=== PATIENT | male | born 1975 | race African-American/Black ===

== ENCOUNTER 2018-06-07 01:35 | Emergency (ER) | payer MEDICAID ==
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
[2018-06-07 02:15] VITALS: BP 118/74
== END 2018-06-07 02:14 | disposition home or self-care (01) ==
DX: S93.402A Sprain of unspecified ligament of left ankle, initial encounter (principal); F17.200 Nicotine dependence, unspecified, uncomplicated; Y04.8XXA Assault by other bodily force, initial encounter; Y99.8 Other external cause status; Y93.89 Activity, other specified
CPT/HCPCS: L4350

== ENCOUNTER 2018-12-17 07:04 | Inpatient (IN) | payer MEDICAID, OTHER ==
--- NOTE | 2018-12-17 07:07 | EDPHY ---
H & P Source: Patient, EMS - Medical/Surgical History Hx Asthma: No Hx Chronic Respiratory Disease: No Hx Diabetes: No Hx Cardiac Disease: No Hx Renal Disease: No Hx Cirrhosis: No Hx Alcoholism: No Hx HIV/AIDS: No Hx Splenectomy or Spleen Trauma: No Other PMH: l ankle fx. substance abuse - Social History Smoking Status: Current every day smoker Time Seen by Provider: 12/17/18 07:07 HPI/ROS: HPI CHIEF COMPLAINT: Running outside naked, drug intoxication possible low blood sugar. HISTORY OF PRESENT ILLNESS: 43-year-old male, presents emergency room by EMS after the make contact he was running outside naked and reports possible methamphetamine use. He appeared acutely agitated running outside check blood sugar got a low blood sugar in the 40s. They brought him to the emergency room where I have shivering. Reported that he did meth. He has an abrasion to the right anterior tibia. Otherwise atraumatic. Patient is a very poor historian appears to be under the of drugs, shaking and sleepy. Past Medical History: Unknown medical history Past Surgical History: Unknown surgical history Social History: Methamphetamine today. Family History: Noncontributory ROS REVIEW OF SYSTEMS: 10 Systems were reviewed and negative with the exception of the elements mentioned in the history of present illness. Exam Constitutional shaking, sleepy, triage nursing summary reviewed, vital signs reviewed, awake/alert. Eyes normal conjunctivae and sclera, EOMI, PERRLA. HENT normal inspection, atraumatic, moist mucus membranes, no epistaxis, neck supple/ no meningismus, no raccoon eyes. Respiratory clear to auscultation bilaterally, normal breath sounds, no respiratory distress, no wheezing. Cardiovascular rate normal, regular rhythm, no murmur, no edema, distal pulses normal. Gastrointestinal soft, non-tender, no rebound, no guarding, normal bowel sounds, no distension, no pulsatile mass. Genitourinary no CVA tenderness. Musculoskeletal no midline vertebral tenderness, full range of motion, no calf swelling, no tenderness of extremities, no meningismus, good pulses, neurovascularly intact. Skin laceration to the right anterior tibia. 3 cm vertically oriented midline tibial ridge. Neurologic somewhat agitated, shaking, Psychiatric normal mood/affect. Heme/Lymph/Immune no lymphadenopathy. Differential Diagnosis: Includes but is not limited to in a particular order polysubstance abuse, methamphetamine intoxication, hypothermia, dehydration, hypoglycemia, rhabdomyolysis Medical Decision Making: Plan for this patient IV establishment with IV fluid bolus, check blood sugar, check core temperature, basic electrolytes, EKG, chest x-ray, drug screen, alcohol level, IV fluids, Reji Hugger. Re-evaluation: X-ray of the right tib-fib: Negative for acute fracture. Along the anterior spine of the right tib-fib distal 1/3 there is a 3 cm vertically oriented laceration present. Patient's laceration was repaired by myself. He had a vertically oriented 3 cm right tib-fib laceration. Wound was copiously irrigated and cleaned. Explored there is no foreign body or debris. Procedure: Laceration repair. Laceration Repair Procedure: Verbal Consent was obtained, Under sterile conditions, The patient had lidocaine with epinephrine used approximately 6ccs to local anesthetize the right tib-fib 3CM Laceration. The wound was copiously irrigated with sterile fluid, the wound was explored for foreign bodies there were none visualized, the wound was explored with a sterile glove to the base. There are no deep structures involved, including no arterial injury. THREE 5.O PROLENE interrupted Sutures were placed in this patient's laceration. He had good close approximation of the wound edges. He Tolerated this well. 0814: Patient is here high on methamphetamine and acutely agitated and tachycardic. Multiple attempts were made for IV access. Very difficult stick. I did place an IV in his right neck under ultrasound guidance. This unfortunately infiltrated. Will re-attempt. Patient's initial blood glucose was noted to be low in the 50s. He received a amp of D50. EKG interpretation by me on record in [facility] system. Impression time of EKG 7:43 a.m., sinus tach 110 without any signs of acute ischemia. Chest x-ray negative for acute cardiopulmonary disease. Image interpreted by myself. 8:30 a.m. patient re-evaluated patient still very agitated. 10 mg hide IM Zyprexa ordered. 0900AM: Patient much improved after IM 10mg Zyprexa. Labs pending. (Adilson Escobar) Constitutional: Initial Vital Signs O2 Sat (%) 95 12/17/18 07:10 O2 Delivery Mode Room Air O2 (L/minute) 2 Allergies/Adverse Reactions: No Known Allergies Allergy (Unverified 12/17/18 09:43) Home Medications: Medication Instructions Recorded Doxycycline Hyclate 100 mg PO BID #14 tab 06/14/18 Medical Decision Making - Diagnostics Imaging Results: Imaging Impressions Chest X-Ray 12/17/18 07:10 Impression: No acute abnormality. Tibia/Fibula X-Ray 12/17/18 07:36 Impression: Negative. Critical Care Time: I assumed care of the patient at 9:00 a.m. Patient is noted to have rhabdomyolysis and mild hypoglycemia Patient had an IV established. He received 3 L of normal saline. The patient is noted to have mild renal insufficiency. 12:00 p.m.: Patient continues to remain sedated from medications received earlier today. Patient has been started on D5 half-normal saline at 150 ml/hr. Repeat CPK is 21,000. Plan will be for admission to the hospital for further treatment of his rhabdomyolysis and renal insufficiency. Consultation is made with the hospitalist service at 12:30 p.m.. (Ajay Lozada) - Data Points Laboratory Results: Laboratory Results 12/17/18 07:33 12/17/18 08:55 12/17/18 12/17/18 12/17/18 12:14 09:27 08:55 WBC RBC Hgb POC Hgb Hct POC Hct MCV MCH MCHC RDW Plt Count MPV Neut % (Auto) Lymph % (Auto) [place] % (Auto) Eos % (Auto) Baso % (Auto) Nucleat RBC Rel Count Absolute Neuts (auto) Absolute Lymphs (auto) Absolute Monos (auto) Absolute Eos (auto) Absolute Basos (auto) Absolute Nucleated RBC Immature Gran % Immature Gran # PT INR APTT POC Sodium Sodium 143 mEq/L mEq/L (135-145) POC Potassium Potassium 5.0 mEq/L mEq/L (3.5-5.2) POC Chloride Chloride 109 mEq/L mEq/L (97-110) Carbon Dioxide 20 mEq/l L mEq/l (22-31) Anion Gap 14 mEq/L mEq/L (6-14) POC BUN BUN 35 mg/dL H mg/dL (7-23) Creatinine 1.7 mg/dL H mg/dL (0.7-1.3) POC Creatinine Estimated GFR 44 Glucose 63 mg/dL L mg/dL (70-100) POC Glucose 80 mg/dL mg/dL 63 mg/dL L mg/dL (70-100) (70-100) Calcium 9.2 mg/dL mg/dL (8.5-10.4) Magnesium Total Bilirubin Conjugated Bilirubin Unconjugated Bilirubin AST ALT Alkaline Phosphatase Creatine Kinase Pending CK-MB (CK-2) Fraction CK-MB (CK-2) % Creatine Kinase Interp POC Troponin I Total Protein Albumin Lipase Ethyl Alcohol 12/17/18 12/17/18 12/17/18 08:08 07:33 07:33 WBC RBC Hgb POC Hgb 14.3 gm/dL gm/dL (13.7-17.5) Hct POC Hct 42 % % (40-51) MCV MCH MCHC RDW Plt Count MPV Neut % (Auto) Lymph % (Auto) [place] % (Auto) Eos % (Auto) Baso % (Auto) Nucleat RBC Rel Count Absolute Neuts (auto) Absolute Lymphs (auto) Absolute Monos (auto) Absolute Eos (auto) Absolute Basos (auto) Absolute Nucleated RBC Immature Gran % Immature Gran # PT INR APTT POC Sodium 143 mEq/L mEq/L (135-145) Sodium POC Potassium 4.7 mEq/L mEq/L (3.3-5.0) Potassium POC Chloride 107 mEq/L mEq/L (97-110) Chloride Carbon Dioxide Anion Gap POC BUN 33 mg/dL H mg/dL (7-23) BUN Creatinine POC Creatinine 1.8 mg/dL H mg/dL (0.7-1.3) Estimated GFR Glucose POC Glucose 72 mg/dL mg/dL 66 mg/dL L mg/dL (70-100) (70-100) Calcium Magnesium Total Bilirubin Conjugated Bilirubin Unconjugated Bilirubin AST ALT Alkaline Phosphatase Creatine Kinase CK-MB (CK-2) Fraction CK-MB (CK-2) % Creatine Kinase Interp POC Troponin I 0.07 ng/mL ng/mL (0.00-0.08) Total Protein Albumin Lipase Ethyl Alcohol 12/17/18 12/17/18 12/17/18 07:33 07:33 07:33 WBC 19.62 10^3/uL H 10^3/uL (3.80-9.50) RBC 4.62 10^6/uL 10^6/uL (4.40-6.38) Hgb 13.6 g/dL L g/dL (13.7-17.5) POC Hgb Hct 41.6 % % (40.0-51.0) POC Hct MCV 90.0 fL fL (81.5-99.8) MCH 29.4 pg pg (27.9-34.1) MCHC 32.7 g/dL g/dL (32.4-36.7) RDW 14.5 % % (11.5-15.2) Plt Count 273 10^3/uL 10^3/uL (150-400) MPV 9.4 fL fL (8.7-11.7) Neut % (Auto) 87.3 % H % (39.3-74.2) Lymph % (Auto) 6.1 % L % (15.0-45.0) [place] % (Auto) 5.9 % % (4.5-13.0) Eos % (Auto) 0.0 % L % (0.6-7.6) Baso % (Auto) 0.1 % L % (0.3-1.7) Nucleat RBC Rel Count 0.0 % % (0.0-0.2) Absolute Neuts (auto) 17.13 10^3/uL H 10^3/uL (1.70-6.50) Absolute Lymphs (auto) 1.20 10^3/uL 10^3/uL (1.00-3.00) Absolute Monos (auto) 1.16 10^3/uL H 10^3/uL (0.30-0.80) Absolute Eos (auto) 0.00 10^3/uL L 10^3/uL (0.03-0.40) Absolute Basos (auto) 0.02 10^3/uL 10^3/uL (0.02-0.10) Absolute Nucleated RBC 0.00 10^3/uL 10^3/uL (0-0.01) Immature Gran % 0.6 % % (0.0-1.1) Immature Gran # 0.11 10^3/uL H 10^3/uL (0.00-0.10) PT 14.4 SEC SEC (12.0-15.0) INR 1.10 (0.83-1.16) APTT 25.8 SEC SEC (23.0-38.0) POC Sodium Sodium 141 mEq/L mEq/L (135-145) POC Potassium Potassium 5.0 mEq/L mEq/L (3.5-5.2) POC Chloride Chloride 108 mEq/L mEq/L (97-110) Carbon Dioxide 23 mEq/l mEq/l (22-31) Anion Gap 10 mEq/L mEq/L (6-14) POC BUN BUN 35 mg/dL H mg/dL (7-23) Creatinine 1.7 mg/dL H mg/dL (0.7-1.3) POC Creatinine Estimated GFR 44 Glucose 65 mg/dL L mg/dL (70-100) POC Glucose Calcium 9.0 mg/dL mg/dL (8.5-10.4) Magnesium 3.2 mg/dL H mg/dL (1.6-2.3) Total Bilirubin 0.8 mg/dL mg/dL (0.1-1.4) Conjugated Bilirubin 0.5 mg/dL mg/dL (0.0-0.5) Unconjugated Bilirubin 0.3 mg/dL mg/dL (0.0-1.1) AST 172 IU/L H IU/L (17-59) ALT 66 IU/L IU/L (21-72) Alkaline Phosphatase 73 IU/L IU/L (38-126) Creatine Kinase 39316 IU/L H IU/L (0-224) CK-MB (CK-2) Fraction 22.60 ng/mL H ng/mL (0.00-4.55) CK-MB (CK-2) % 0.2 % % (0.0-4.0) Creatine Kinase Interp NEGATIVE (NEGATIVE) POC Troponin I Total Protein 7.5 g/dL g/dL (6.3-8.2) Albumin 4.6 g/dL g/dL (3.5-5.0) Lipase 271 IU/L IU/L (23-300) Ethyl Alcohol < 10 mg/dL mg/dL (0-10) 12/17/18 07:29 WBC RBC Hgb POC Hgb Hct POC Hct MCV MCH MCHC RDW Plt Count MPV Neut % (Auto) Lymph % (Auto) [place] % (Auto) Eos % (Auto) Baso % (Auto) Nucleat RBC Rel Count Absolute Neuts (auto) Absolute Lymphs (auto) Absolute Monos (auto) Absolute Eos (auto) Absolute Basos (auto) Absolute Nucleated RBC Immature Gran % Immature Gran # PT INR APTT POC Sodium Sodium POC Potassium Potassium POC Chloride Chloride Carbon Dioxide Anion Gap POC BUN BUN Creatinine POC Creatinine Estimated GFR Glucose POC Glucose 56 mg/dL L mg/dL (70-100) Calcium Magnesium Total Bilirubin Conjugated Bilirubin Unconjugated Bilirubin AST ALT Alkaline Phosphatase Creatine Kinase CK-MB (CK-2) Fraction CK-MB (CK-2) % Creatine Kinase Interp POC Troponin I Total Protein Albumin Lipase Ethyl Alcohol Medications Given: Discontinued Medications Dextrose (Dextrose 50% Syringe) 25 gm IVP EDNOW ONE Stop: 12/17/18 07:31 Last Admin: 12/17/18 07:41 Dose: 25 gm Dextrose (Dextrose 50% Syringe) 25 gm IVP EDNOW ONE Stop: 12/17/18 10:08 Last Admin: 12/17/18 10:11 Dose: 25 gm Haloperidol Lactate (Haldol Injection) 10 mg IM EDNOW ONE Stop: 12/17/18 08:34 Last Admin: 12/17/18 09:49 Dose: Not Given Sodium Chloride (Ns) 2,000 mls @ 0 mls/hr IV EDNOW ONE; Wide Open PRN Reason: Protocol Stop: 12/17/18 07:11 Last Admin: 12/17/18 07:41 Dose: 2,000 mls Sodium Chloride (Ns) 1,000 mls @ 0 mls/hr IV EDNOW ONE; Wide Open PRN Reason: Protocol Stop: 12/17/18 09:26 Last Admin: 12/17/18 09:33 Dose: 1,000 mls Lorazepam (Ativan Injection) 1 mg IVP EDNOW ONE Stop: 12/17/18 07:11 Last Admin: 12/17/18 07:42 Dose: 1 mg Lorazepam (Ativan Injection) 1 mg IM EDNOW ONE Stop: 12/17/18 10:15 Last Admin: 12/17/18 10:15 Dose: 1 mg Olanzapine (Zyprexa Injection) 10 mg IM EDNOW ONE Stop: 12/17/18 08:36 Last Admin: 12/17/18 09:30 Dose: 10 mg Point of Care Test Results: Chemistry 12/17/18 12/17/18 12/17/18 12:14 09:27 08:08 POC Sodium POC Potassium POC Chloride POC BUN POC Creatinine POC Glucose 80 mg/dL mg/dL 63 mg/dL L mg/dL 72 mg/dL mg/dL (70-100) (70-100) (70-100) POC Troponin I 12/17/18 12/17/18 12/17/18 07:33 07:33 07:29 POC Sodium 143 mEq/L mEq/L (135-145) POC Potassium 4.7 mEq/L mEq/L (3.3-5.0) POC Chloride 107 mEq/L mEq/L (97-110) POC BUN 33 mg/dL H mg/dL (7-23) POC Creatinine 1.8 mg/dL H mg/dL (0.7-1.3) POC Glucose 66 mg/dL L mg/dL 56 mg/dL L mg/dL (70-100) (70-100) POC Troponin I 0.07 ng/mL ng/mL (0.00-0.08) ISTAT H&H 12/17/18 07:33 POC Hgb 14.3 gm/dL gm/dL (13.7-17.5) POC Hct 42 % % (40-51) Departure - Departure Disposition: Home, Routine, Self-Care Clinical Impression: Methamphetamine abuse Condition: Fair Instructions: Laceration (ED), Methamphetamine Abuse (ED), Care For Your Stitches (ED) Additional Instructions: 1. You have 3 sutures in your right leg. These need to be removed in 10 days. Referrals: NONE *PRIMARY CARE P,. [Primary Care Provider] - As per Instructions
[2018-12-17] MEDS ORDERED: LORazepam 2 MG/ML INJ IVP ONE ×2 (07:10→12:58)
[2018-12-17] MEDS ORDERED: NS 2,000 ML IV ONE (07:10)
[2018-12-17] MEDS ORDERED: D50W 25 GM/50 ML SYR IVP ONE ×2 (07:30→10:07)
[2018-12-17 07:55] LABS: PLATELET COUNT 273 10^3/uL (150-400)
[2018-12-17 08:07] LABS: INR 1.1 (0.83-1.16); PROTIME(PATIENT) 14.4 SEC (12.0-15.0)
[2018-12-17] MEDS ORDERED: LORazepam 2 MG/ML INJ ONE (08:09)
[2018-12-17] MEDS ORDERED: HALOPERIDOL LACT 5 MG/ML INJ IM ONE (08:33)
[2018-12-17] MEDS ORDERED: OLANZapine 10 MG/2 ML VIAL IM ONE (08:35)
[2018-12-17 09:10] LABS: CREATINE KINASE 12448 IU/L (0-224)
[2018-12-17] MEDS ORDERED: NS 1,000 ML IV ONE (09:25)
[2018-12-17] MEDS ORDERED: LORazepam 2 MG/ML INJ IM ONE (10:14)
[2018-12-17] MEDS ORDERED: POTASSIUM Cl (KCl) 10 MEQ in D5W 1/2 NS 1,000 ML IV SCH (12:30)
[2018-12-17 12:35] LABS: CREATINE KINASE 21724 IU/L (0-224)
[2018-12-17] MEDS ORDERED: ACETAMINOPHEN 325 MG TAB PO PRN (13:00)
[2018-12-17] MEDS ORDERED: ONDANSETRON 4 MG/2 ML VIAL IVP PRN (13:00)
[2018-12-17] MEDS ORDERED: ONDANSETRON DISINTEGRATING 4 MG TAB PO PRN (13:00)
[2018-12-17] MEDS ORDERED: hydrOXYzine HCL 25 MG TAB PO PRN (13:02)
[2018-12-17] MEDS ORDERED: LOPERAMIDE HCL 2 MG CAP PO PRN (13:02)
[2018-12-17] MEDS ORDERED: LORazepam 2 MG/ML INJ IVP PRN (13:26)
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
[2018-12-17] MEDS ORDERED: NS 1,000 ML IV SCH (14:15)
[2018-12-17] MEDS: D5W NS 1,000 ML IV SCH (15:07)
--- NOTE | 2018-12-17 15:08 | HOSPPROG ---
Hospitalist Progress Note Assessment/Plan: Pt seen and examined with [employer]. Agree with her H&P. This is a 43 yo homeless male , Meth user admitted with acute encephalopathy, agitation, and rhabdo. He was given Ativan and Zyprexa in the ER and has fallen asleep. He is not able to provide any history. He has been afebrile EKG shows likely Afib K: 5 Glucose: 40's WBC: 19 CO2: 20, no AG Cr. 1.7, CK: elevated Lipase Ok Saturating well on RA CXR with no infiltrate #Acute Encephalopathy, likely multifactorial: Metabolic, toxic, infectious, medication induced. Do not suspect trauma #Leukocytosis, no reported fever, soft BP #Rhabdo, Acute Kidney Injury, Dehydration #Agitation, now s/p Benzo and antipsychotic #Acute Intoxication, likely Meth -negative ETOH #Query Afib #Borderline Hyperkalemia #Prolonged QT Plan: The pt has been admitted to the med surg floor. He may need a higher level of care pending w/u and clinical course obtain TTE, r/o endocarditis, start telemetry, repeat EKG Mg reviewed, mildly elevated, will repeat Additional IVF, will change from 1/2 NS to NS. Will run through tomorrow check infectious w/u. Leukocytosis may be infectious vs other. For now VS seem stable. Will obtain PC and repeat labs. Low threshold to start abx, but source is unclear at this time Mild acidosis noted, no AG Avoids meds prolonging the QT Benzo's PRN agitation total critical care time in this pt with acute intoxication and end organ damage with possible infection is 50 minutes. W/u pending, will review as available. Subjective: does not follow commands Objective: Vital Signs Temp Pulse Resp BP Pulse Ox 36.4 C 67 16 107/69 99 12/17/18 14:26 12/17/18 14:26 12/17/18 14:26 12/17/18 14:26 12/17/18 14:26 12/16/18 12/17/18 12/18/18 05:59 05:59 05:59 Intake Total 3100 Balance 3100 PT 14.4 SEC (12.0-15.0) 12/17/18 07:33 INR 1.10 (0.83-1.16) 12/17/18 07:33 - Physical Exam Constitutional: no apparent distress Eyes: PERRL Ears, Nose, Mouth, Throat: dry mucous membranes Cardiovascular: regular rate and rhythym, no murmur, rub, or gallop Respiratory: no respiratory distress, no rales or rhonchi, clear to auscultation Gastrointestinal: normoactive bowel sounds, soft, non-tender abdomen Skin: warm Neurologic: No AAOx3 Psychiatric: encephalopathic, No interacting appropriately Lymph, Heme, Immunologic: No petechiae ICD10 Worksheet Patient Problems: Problems Problem Status Onset Methamphetamine abuse Acute
--- NOTE | 2018-12-17 17:18 | PDMN ---
Medical Necessity Medical necessity: Pt meets inpt criteria per MD order and [facility], Substance- Related Disorders. 43 y/o w/hx substance abuse, presenting w/agitiation and hypoglycemia, non-verbal, [place] ([place] [address], CK-MB 22.6, BUN 35, creat 1.7), acute intoxication likely due to meth, acute encephalopathy- multi-factorial, hypoglycemia, and leukocytosis (WBC's 19.62), prolonged QT. TTE , r/o endocarditis, tele, IVF. Est LOS>2MN for ongoing eval/management of above.
--- NOTE | 2018-12-17 17:36 | ECHO ---
[email or web address] [address] [address] Main: [phone] Fax: Transthoracic Echocardiogram Name: PABLITO LEVY MR#: [id number] Study Date: 12/17/2018 Study Time: 03:00 PM Date of : 1975 Age: 43 year(s) Height: 165.1 cm (65 in.) Weight: 58.97 kg (130 lb.) BSA: 1.65 m2 Gender: Male Examination: Echo Indication: Question endocarditis/Meth Image Quality: Adequate Contrast: Requested by: Julio Quick BP: 107 mmHg/69 mmHg Heart Rate: Rhythm: Indication: Question endocarditis/Meth Procedure Staff Timber Surveyor: Jyoti Otero RDCS Reading Physician: Colt Llanos MD Requesting Provider: Measurements: Chambers Valvular Assessment AV/MV Valvular Assessment TV/PV Normal Normal Normal Name Value Range Name Value Range Name Value Range Ao Maria (MM): 3.2 cm (2.2 cm-3.7 AV Vmax: 1.10 m/s (1 m/s-1.7 TR Vmax: 2.23 mm/s ( - ) cm) m/s) TR PGmax: 20 mmHg ( - ) IVSd (2D): 0.9 cm (0.6 cm-1.1 AV meanP mmHg ( - ) syst. PAP: 25 mmHg ( - ) cm) MV E Vmax: 0.78 m/s ( - ) LVDd (2D): 4.4 cm (4.2 cm-5.9 MV A Vmax: 0.58 m/s ( - ) cm) MV E/A: 1.34 ( - ) LVDs (2D): 2.9 cm (2.1 cm-4 cm) LVPWd (2D): 0.9 cm (0.6 cm-1 cm) LVEF (BP): 63 % (>=55 %) EF Range: 60-65 % Continued Measurements: Chambers Valvular Assessment AV/MV Valvular Assessment TV/PV Name Value Name Value Name Value LADs Lon.5 cm MV E' Septal: 0.10 m/s CVP (est.): 5 mmHg LA Area: 16.5 cm2 MV E/E' Septal: 7.80 MV E/E' Lateral: 6.20 Findings: Left Ventricle: Normal size left ventricle. No LV hypertrophy. Normal global systolic LV function. The ejection fraction is estimated to be 60-65 %. No regional wall motion abnormality. Normal diastolic LV Patient: PABLITO LEVY Study Date: 12/17/2018 Page 1 of 2 03:00 PM function. Right Ventricle: Normal size right ventricle. Left Atrium: The left atrium is normal in size. Right Atrium: The right atrium is normal in size. Mitral Valve: The mitral valve is normal in appearance and function. Trivial mitral valve regurgitation. Aortic Valve: The aortic valve is normal in appearance and function. The aortic valve is tri-leaflet. Tricuspid Valve: The tricuspid valve is normal in appearance and function. Mild tricuspid regurgitation is present. RVSP is 25mmHG.. Pulmonic Valve: The pulmonic valve is normal in appearance and function. Mild pulmonic valve regurgitation is noted. Aorta: The aorta is normal. Pericardium: No pericardial effusion. Exam Comments: No obvious vegetations visualized.. (No Signature Object) Patient: PABLITO LEVY Study Date: 12/17/2018 Page 2 of 2 03:00 PM [id number]
--- NOTE | 2018-12-17 18:52 | HOSPPROG ---
Hospitalist Progress Note Assessment/Plan: Procalcitonin 7.44. Awaiting blood and urine culture results. Will begin Vancomycin and Zosyn while those tests are pending. Objective: Vital Signs Temp Pulse Resp BP Pulse Ox 36.3 C 65 16 104/68 98 12/17/18 17:05 12/17/18 17:05 12/17/18 17:05 12/17/18 17:05 12/17/18 17:05 Laboratory Results 12/17/18 16:25 12/16/18 12/17/18 12/18/18 05:59 05:59 05:59 Intake Total 3100 Output Total 1050 Balance 2050 PT 14.4 SEC (12.0-15.0) 12/17/18 07:33 INR 1.10 (0.83-1.16) 12/17/18 07:33 ICD10 Worksheet Patient Problems: Problems Problem Status Onset Methamphetamine abuse Acute
[2018-12-17] MEDS ORDERED: VANCOMYCIN HCL/NORMAL SALINE 250 ML IV SCH (19:00)
[2018-12-17] MEDS: PIPERACILLIN/TAZO 4.5 GM/DEX 100 ML IV SCH ×2 (20:48→23:14)
--- NOTE | 2018-12-17 23:07 | CPEKG ---
Test Reason : OPEN Blood Pressure : / mmHG Vent. Rate : 072 BPM Atrial Rate : 068 BPM P-R Int : 148 ms QRS Dur : 084 ms QT Int : 421 ms P-R-T Axes : 077 082 041 degrees QTc Int : 461 ms Sinus arrhythmia Confirmed by Aren Antony ([id number]) on 12/17/2018 11:06:48 PM Referred By: Confirmed By:Aren Antony
[2018-12-18] MEDS: PIPERACILLIN/TAZO 4.5 GM/DEX 100 ML IV SCH ×3 (05:49→18:02)
[2018-12-18 06:34] LABS: PLATELET COUNT 275 10^3/uL (150-400)
[2018-12-18 07:02] LABS: CREATINE KINASE > 30000 IU/L (0-224)
--- NOTE | 2018-12-18 10:06 | ASMTCMCOM ---
CM Note CM Note Notes: Pt is a 43 y/o man admitted for running outside naked. According to H&P, possible meth use. CM discussed case w/ pts nurse Gay. PT and SPL have been ordered. Needs are TBD at this time. CM made a referral to [facility]. Pt may be homeless. CM to follow. Plan: TBD Date Signed: 12/18/2018 10:05 AM Electronically Signed By:ARMAND Stout
[2018-12-18] MEDS: D5W NS 1,000 ML IV SCH ×2 (13:37→19:47)
[2018-12-18] MEDS ORDERED: LORazepam 0.5 MG TAB PO PRN (15:44)
[2018-12-18] MEDS ORDERED: PNEUMOCOCCAL 0.5ML VACCINE VIAL (PNEUMOVAX 23) IM ONE (15:47)
--- NOTE | 2018-12-18 15:48 | HOSPPROG ---
Hospitalist Progress Note Assessment/Plan: #Acute Encephalopathy, likely multifactorial: Metabolic, toxic, infectious, medication induced. Do not suspect trauma #?Sepsis, Leukocytosis, tachycardia, soft BP, elevated procalcitonin -no reported fever -suspect that the elevated procalcitonin is due to meth use and inflammatory mediated. Will stop Vancomycin. Cont Zosyn for now, but plan on d/c tomorrow unless clear source of infection identified. 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 #Borderline Hyperkalemia #Prolonged QT #Hypoglycemia #Mildly elevated trop, normal on repeat. Due to LINCOLN, rhabdo, Meth. No further w/ u at this time #Metabolic, non anion gap acidosis, resolving #Transaminitis: likely due to volume depletion. expect improvement with fluids. Will obtain Hep panel. INR is ok. Plan: Stop Vanco cont Zosyn cont Fluids cont glucose supplementation Avoids meds prolonging the QT Benzo's PRN agitation Subjective: wakes up, follow commands Objective: Vital Signs Temp Pulse Resp BP Pulse Ox 37.4 C 70 16 131/84 H 97 12/18/18 12:25 12/18/18 12:25 12/18/18 12:25 12/18/18 12:25 12/18/18 12:25 Laboratory Results 12/18/18 05:15 12/18/18 05:15 12/17/18 12/18/18 12/19/18 05:59 05:59 05:59 Intake Total 3100 Output Total 1980 475 Balance 1120 -475 PT 14.4 SEC (12.0-15.0) 12/17/18 07:33 INR 1.10 (0.83-1.16) 12/17/18 07:33 - Physical Exam Constitutional: no apparent distress Eyes: PERRL, EOMI Ears, Nose, Mouth, Throat: moist mucous membranes, hearing normal Cardiovascular: regular rate and rhythym, No edema Respiratory: no respiratory distress, no rales or rhonchi, clear to auscultation Gastrointestinal: normoactive bowel sounds Skin: warm Neurologic: No AAOx3 Psychiatric: encephalopathic Lymph, Heme, Immunologic: No petechiae ICD10 Worksheet Patient Problems: Problems Problem Status Onset Methamphetamine abuse Acute
[2018-12-18 16:52] LABS: HEPATITIS B SURFACE ANTIGEN NEGATIVE (NEGATIVE)
[2018-12-18 16:56] LABS: HEPATITIS A ANTIBODY IGM (BCH) NEGATIVE (NEGATIVE); HEPATITIS B CORE AB IGM NEGATIVE (NEGATIVE)
[2018-12-18 17:11] LABS: HEPATITIS C ANTIBODY TOTAL NEGATIVE (NEGATIVE)
[2018-12-19] MEDS: PIPERACILLIN/TAZO 4.5 GM/DEX 100 ML IV SCH ×3 (00:05→12:26)
[2018-12-19 05:52] LABS: PLATELET COUNT 257 10^3/uL (150-400)
[2018-12-19 10:24] LABS: CREATINE KINASE 23787 IU/L (0-224)
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
--- NOTE | 2018-12-19 15:25 | ASMTCAGE ---
CAGE Do you feel you ought to Answers: Yes cut down on your drinking or drug use? Do people annoy you by Answers: No criticizing your drinking or drug use? Do you feel guilty about Answers: No your drinking or drug use? 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 Date Signed: 12/19/2018 03:25 PM Electronically Signed By:ARMAND Stout
--- NOTE | 2018-12-19 16:02 | ASMTCMCOM ---
CM Note CM Note Notes: CM met w/ pt for dispo planning. Pt vocalized that he wants to get sober. CM provided resources. CAGE completed. Pt may need assistance w/ a bus pass and a prison reservation. CM to follow. Date Signed: 12/19/2018 04:01 PM Electronically Signed By:ARMAND Stout
--- NOTE | 2018-12-19 21:57 | CPEKG ---
Test Reason : OPEN Blood Pressure : / mmHG Vent. Rate : 110 BPM Atrial Rate : 152 BPM P-R Int : 166 ms QRS Dur : 092 ms QT Int : 364 ms P-R-T Axes : 000 070 013 degrees QTc Int : 493 ms Atrial fibrillation Ventricular premature complex Borderline prolonged QT interval Confirmed by Adilson Escobar ([id number]) on 12/19/2018 9:56:50 PM Referred By: Confirmed By:Adilson Escobar
[2018-12-20 05:46] LABS: PLATELET COUNT 261 10^3/uL (150-400)
--- NOTE | 2018-12-20 10:17 | HOSPPROG ---
Hospitalist Progress Note Assessment/Plan: #Acute Encephalopathy, likely multifactorial: Metabolic, toxic, medication induced. Do not suspect trauma or infection -resolved #initial concern for Sepsis- with leukocytosis, tachycardia, elevated procalcitonin -no reported fever -Started on vanc/zosyn but Vancomycin stopped 12/18, Zosyn stopped 12/19. -blood and Ucx neg to date, WBC normalized, no fevers here #Rhabdo, Acute Kidney Injury, Dehydration -stop cont IVF -follow creat daily #Agitation, now s/p Benzo and antipsychotic -nl affect -CM assisting with dispo #Acute Intoxication, likely Meth -negative ETOH -CM assisting with resources #Borderline Hyperkalemia -resolved #Prolonged QT -resolved #Hypoglycemia -resolved #Mildly elevated trop, normal on repeat. -Due to LINCOLN, rhabdo, Meth -No further w/u at this time #Metabolic, non anion gap acidosis -resolved #Transaminitis - Hep Panel is negative. INR is ok. -will need outpt recheck/eval if remains elev #homelessness -CM assisting with dispo No PCP FULL CODE DVT prophy- ambulation DISPO- unsure at this time, will depend upon hydration/kidney status Subjective: Says he feels OK. Denies CP/abd pain/n/v/d/SOB. Is able to eat/ drink without difficulty. Says doesn't have a PCP, stays around [place] but needs to go to [place] to cone picker money to rent an apt. Objective: Vital Signs Temp Pulse Resp BP Pulse Ox 98.7 F 90 18 128/67 H 98 12/20/18 08:00 12/20/18 08:00 12/20/18 08:00 12/20/18 08:00 12/20/18 08:00 Microbiology 12/17/18 16:00 Urine Culture - Final Unspecified Laboratory Results 12/20/18 04:57 12/20/18 04:57 12/18/18 12/19/18 12/20/18 11:59 11:59 11:59 Intake Total 3100 840 100 Output Total 2455 2350 2550 Balance 645 -1510 -2450 PT 14.4 SEC (12.0-15.0) 12/17/18 07:33 INR 1.10 (0.83-1.16) 12/17/18 07:33 - Time Spent With Patient Time Spent with Patient: greater than 25 minutes Time Spent with Patient: Greater than 25 minutes spent on this patients care, greater than 50% of time spent counseling, educating, and coordinating care regarding the above mentioned plan. - Physical Exam Constitutional: no apparent distress, appears nourished, not in pain Eyes: anicteric sclera, EOMI Ears, Nose, Mouth, Throat: moist mucous membranes, hearing normal Cardiovascular: regular rate and rhythym, no murmur, rub, or gallop Respiratory: no respiratory distress, no rales or rhonchi, clear to auscultation Gastrointestinal: normoactive bowel sounds, soft, non-tender abdomen, no palpable masses Skin: warm, No rash Psychiatric: interacting appropriately, not anxious, not encephalopathic, thought process linear ICD10 Worksheet Patient Problems: Problems Problem Status Onset Methamphetamine abuse Acute
--- NOTE | 2018-12-20 17:06 | ASMTCMCOM ---
CM Note CM Note Notes: Met w/pt regarding dc, states he did coordinated entry in June. [facility] but states has not been to the [facility] during the day. DC Plan: TBD Date Signed: 12/20/2018 05:05 PM Electronically Signed By:Rere Reyes RN
[2018-12-21 11:52] VITALS: BP 131/79
--- NOTE | 2018-12-21 15:40 | ASMTDCNOTE ---
Case Management Discharge Discharge Order Complete? Answers: Yes Patient to Obtain Answers: Independently Medications Transportation Arranged Answers: Bus Tokens Family Notified Answers: No Discharge Comments Notes: Spoke with hospitalist, RN and pt in the room. Pt given bus pass and address for reserved bed at [facility] where he has stayed in the past. Pt also given flyer with info on Coordinated entry, and flyer from [facility] for instructions on addiction recovery intake. CM left message on [facility] voicemail with info on new patient and noting that he needs follow up labs on Sat or . Pt given address for [facility]. No further CM needs noted at this time. D/C Plan: Homeless intermediate Date Signed: 12/21/2018 03:37 PM Electronically Signed By:Laurita Boswell
--- NOTE | 2018-12-21 15:43 | ASDISCHSUM ---
Discharge Information Plan Status:Homeless/[facility] Medically Cleared to Leave:12/20/2018 Discharge Date:12/20/2018 CM D/C Disposition:Streets (Homeless) ADT D/C Disposition:Home, Routine, Self-Care Projected Discharge Date:12/20/2018 Transportation at D/C:Bus Ticket Discharge Delay Reason: Follow-Up Date:12/20/2018 Discharge Slot: Final Diagnosis:rhabdomyolysis, meth abuse Placement Information Patient Contact Information Contact Name:TJ Relationship: Address: Home Phone: Work Phone: City: Alternate Phone: State/[place] Code: Email: Financial Information Financial Class:Self-Pay Primary Plan Desc:SP UNINSURED Primary Plan Number:[id number] Secondary Plan Desc: Secondary Plan Number: Assessment Information LACE LACE Length of stay for Answers: 4-6 days current admission Acuity / Level of Answers: Yes Care: Did the patient have an inpatient admission? Comorbidities - select Answers: Other Notes: rhadbdo all that apply # of Emergency department Answers: 3-4 visits in the last 6 months Social determinants Answers: History of substance abuse (ETOH, street drugs, prescription drugs, etc.) Homelessness (street, [facility]) Score: 17 Date Signed: 12/21/2018 03:42 PM Electronically Signed By:Laurita Boswell [facility] Progress Note CM Note CM Note Notes: Pt is a 43 y/o man admitted for running outside naked. According to H&P, possible meth use. CM discussed case w/ pts nurse Rashid. PT and SPL have been ordered. Needs are TBD at this time. CM made a referral to [facility]. Pt may be homeless. CM to follow. Plan: TBD Date Signed: 12/18/2018 10:05 AM Electronically Signed By:ARMAND Stout CAGE Questionnaire CAGE Do you feel you ought to Answers: Yes cut down on your drinking or drug use? Do people annoy you by Answers: No criticizing your drinking or drug use? Do you feel guilty about Answers: No your drinking or drug use? Do you drink or use drugs Answers: No first thing in the morning ([employer])? Date Signed: 12/19/2018 03:25 PM Electronically Signed By:ARMAND Stout [facility] CM Progress Note CM Note CM Note Notes: CM met w/ pt for dispo planning. Pt vocalized that he wants to get sober. CM provided resources. CAGE completed. Pt may need assistance w/ a bus pass and a [facility] reservation. CM to follow. Date Signed: 12/19/2018 04:01 PM Electronically Signed By:ARMAND Stout [facility] CM Progress Note CM Note CM Note Notes: Met w/pt regarding dc, states he did coordinated entry in June. [facility] but states has not been to the [facility] during the day. DC Plan: TBD Date Signed: 12/20/2018 05:05 PM Electronically Signed By:Rere Reyes RN Case Management Discharge Plan Note Case Management Discharge Discharge Order Complete? Answers: Yes Patient to Obtain Answers: Independently Medications Transportation Arranged Answers: Bus Tokens Family Notified Answers: No Discharge Comments Notes: Spoke with hospitalist, RN and pt in the room. Pt given bus pass and address for reserved bed at [facility] where he has stayed in the past. Pt also given flyer with info on Coordinated entry, and flyer from [facility] for instructions on addiction recovery intake. CM left message on [facility] voicemail with info on new patient and noting that he needs follow up labs on Sat or . Pt given address for [facility]. No further CM needs noted at this time. D/C Plan: [facility] Date Signed: 12/21/2018 03:37 PM Electronically Signed By:Laurita Boswell Intervention Information
--- NOTE | 2018-12-22 14:11 | GDS ---
SERVICE: [facility] hospitalist. CONSULTS: None. PROCEDURES: 1. Chest x-ray on the day of admission showed no acute abnormality, healing of a previously noted an terior left 9th rib fracture. 2. Tib-fib x-ray on the day of admission shows no fracture. 3. Echocardiogram on the day of admission shows normal LV, normal ejection fraction 60% to 65% , nor mal RV, normal LA, normal RA, trivial MR, normal AV, mild TR, mild OK. No effusion. No vegetations. HISTORY AND PHYSICAL: Please see previously dictated note by Dr. Quick. ADMISSION DIAGNOSES: 1. Acute rhabdomyolysis. 2. Acute metabolic encephalopathy. 3. Opiate use. 4. Hypoglycemia. 5. Leukocytosis. 6. Acute kidney injury. DISCHARGE DIAGNOSES: 1. Acute rhabdomyolysis, resolved. 2. Acute metabolic encephalopathy, resolved. 3. Opiate use. 4. Hypoglycemia, resolved. 5. Leukocytosis, resolved. 6. Homelessness. HOSPITAL COURSE: The patient was brought into the emergency department by EMS when he was found to b e running around outside naked and was very agitated. In the emergency department, his blood sugar w as in the 40s. He had a wound to his right aly that had no underlying fracture, but did require sut ures, and initial labs showed a creatine kinase of greater than 21,000. He was admitted to the ICU for aggressive IV fluid hydration, opiate withdrawal precautions, telemetr y. He received a significant amount of IV fluids, and on the following day, his white blood cell cou nt had decreased to 9.57. His blood sugar remains slightly low, but in the 60s. CK level took a few days to start to decrease and was last measured at 23,787 on the . His creatinine was initially 1.7, felt to be secondary to rhabdomyolysis and also possible dehydration. It gradually decreased e very day and had stayed in the normal range of 1.2 for 2 days without IV fluid hydration (as that had been stopped a few days prior). He also had 1 slightly elevated troponin, but a followup was normal and he showed no acute EKG changes suggestive of any cardiac ischemia on telemetry. He had elevated LFTs that were starting to trend down (140 AST on the day of discharge from a max of 414 on 12/18/2018, and 106 ALT on the day of discharge from a max of 110 on 12/18/2018. Lipase was c hecked and normal. Procalcitonin was elevated on the day of admission, but he did not have any fever throughout his stay, and it was felt to be secondary to inflammation and infection. He did have a u rine and urine culture done, which were the urine culture was negative. He also had blood cultures d one, which were also negative. He was given a pneumococcal vaccine and a flu vaccine prior to discha rge. He initially had to be treated with Ativan, Haldol, and Zyprexa, but for several days prior to his di scharge, his mood and affect were very appropriate, and no long-term psychiatric medications were pre scribed. He does have a history of methamphetamine use and Case Management met with him several time s to discuss his options for ongoing care. He denies having a primary care provider in the area and Case Management contacted [facility] to set up an outpatient followup as he definitely needs to establish care, have addiction resources, and also followup laboratory studies. He was started empir ically on vancomycin and Zosyn after elevated procalcitonin was received; however, as cultures were n ormal, encephalopathy resolved, and he had no fever, the vancomycin was stopped, and then, the Zosyn was stopped the following day. On the day of discharge, he was eating and drinking without difficulty. He was remaining hydrated wi thout IV fluids for greater than 24 hours. His creatinine function had returned to normal. Case Man agement arranged for him to have a bed in the homeless correction, so that he would not be in the cold. He says he will follow up with [facility] and return here for a lab draw in a few days as jesse tapia. If at any time he has difficulty doing staying hydrated, muscle pain, fever, or other acute iss ues, he will return immediately to the emergency department for re-evaluation. DISCHARGE MEDICATIONS: He is not discharged with any medications. DISCHARGE INSTRUCTIONS: He has 3 sutures in his right leg and he was instructed to return on the 25t h or 26th to have these removed either in the emergency department or at [facility]. He was rem inded that he needs a laboratory draw to recheck CMP and CK sometime this week. He was encouraged to contact [facility] to discuss drug use and addiction recovery. He was encouraged to con tact Case Management and [facility] to discuss long-term housing. /[id number]/MODL
== END 2018-12-21 16:50 | disposition home or self-care (01) | DRG 557 ==
LOC: EDUNIT# → F3E 14:17
PROVIDERS: ADMIT Family Medicine; ATTEND Family Medicine
PROC: 0HQKXZZ Repair Right Lower Leg Skin, External Approach (ICD-10-PCS; principal; 2018-12-17)
DX: M62.82 Rhabdomyolysis (principal); G93.41 Metabolic encephalopathy; N17.9 Acute kidney failure, unspecified; F15.921 Other stimulant use, unspecified with intoxication delirium; S81.811A Laceration without foreign body, right lower leg, initial encounter; W20.8XXA Other cause of strike by thrown, projected or falling object, initial encounter; E86.9 Volume depletion, unspecified; E16.2 Hypoglycemia, unspecified; Z59.0 Homelessness; Z23 Encounter for immunization; Z72.0 Tobacco use
CPT/HCPCS: 80305; 82435-PO; 82565-PO; 82947-PO; 84132-PO; 84295-PO; 84484-ER; 84520-PO; 85014-ER; 92610-GN; 96365; 97116-GP; 97161-GP; G0008; G0009; G0472; G0480; J2060; J2543; J3370; J3480